=== PATIENT | male | born 1990 | race African-American/Black ===

== ENCOUNTER → 2016-06-04 | Emergency (ER) | payer OTHER ==
[~2016-06-04] VITALS: Ht 180.3 cm; Wt 106.6 kg
[~2016-06-04] MED LIST: METOCLOPRAMIDE 10 MG TAB PO ONE; REGL10TA6 PO
[2016-06-04 19:14] VITALS: BP 166/87
[2016-06-04 21:45] LABS: MEAN CORPUSCULAR HEMOGLOBIN 24.6 pg (27.0-33.0); MEAN CORPUSCULAR HGB CONC 32.2 g/dl (32.0-36.5); MEAN CORPUSCULAR VOLUME 76.6 fl (80.0-96.0); RED CELL DISTRIBUTION WIDTH 14.7 % (11.5-14.5); WHITE BLOOD COUNT 8.2 K/mm3 (4.0-10.0)
[2016-06-04 22:07] LABS: METHADONE URINE NEGATIVE (NEGATIVE)
[2016-06-04 22:09] LABS: ALBUMIN 4.3 GM/DL (3.2-5.2); ALBUMIN/GLOBULIN RATIO 1.48 (1.00-1.93); ALKALINE PHOSPHATASE 84 U/L (45-117); ALT/SGPT 23 U/L (12-78); ANION GAP 5 MEQ/L (8-16); AST/SGOT 18 U/L (15-37); BILIRUBIN,DIRECT < 0.1 MG/DL (0.0-0.2); BILIRUBIN,TOTAL 0.4 MG/DL (0.2-1.0); BLOOD UREA NITROGEN 17 MG/DL (7-18); CALCIUM LEVEL 8.6 MG/DL (8.5-10.1); CARBON DIOXIDE LEVEL 31 MEQ/L (21-32); CHLORIDE LEVEL 107 MEQ/L (98-107); CREATININE FOR GFR 1.21 MG/DL (0.70-1.30); GLOMERULAR FILTRATION RATE > 60.0 (>60); GLUCOSE, FASTING 78 MG/DL (70-105); POTASSIUM SERUM 4.2 MEQ/L (3.5-5.1); SODIUM LEVEL 143 MEQ/L (136-145); TOTAL PROTEIN 7.2 GM/DL (6.4-8.2)
--- NOTE | 2016-06-04 23:00 | REPUSA ---
CLINICAL HISTORY: Headaches. TECHNIQUE: Multiple axial brain CT scan sections were obtained from base to vertex without contrast a dministration. COMMENTS: The study shows normal configuration of sella turcica. There are no intra or extra-axial collections. There is no mass effect or midline shift. There is no evidence of hematoma formation. No hydrocephal us is present. No abnormal calcifications are noted. No significant abnormalities are seen either in the posterior fossa or supratentorial compartment. The sinuses and mastoid air cells are patent. IMPRESSION: No evidence of acute intracranial pathology. Thank you for your kind referral of this patient.
== END | disposition home or self-care (01) ==
LOC: M ED 20:05
DX: R51 Headache (principal); F17.210 Nicotine dependence, cigarettes, uncomplicated
CPT/HCPCS: 36415; 70450; 80048; 80076; 80306; 85027; 99281; G0480

== ENCOUNTER 2016-09-18 07:20 | Emergency (ER) | payer OTHER ==
[~2016-09-18] VITALS: Ht 182.9 cm; Wt 110.0 kg
[~2016-09-18 07:20] MED LIST changes: -METOCLOPRAMIDE 10 MG TAB PO ONE
[2016-09-18] MEDS ORDERED: ACETAMINOPHEN 325 MG TAB PO ONE (08:30)
[2016-09-18 08:33] LABS: BASO % 0.6 % (0.0-1.0); EOS # 0.6 K/mm3 (0.0-0.50); EOS % 6.5 % (0.0-3.0); LARGE UNSTAINED CELL # 0.2 K/mm3 (0.0-0.4); LARGE UNSTAINED CELL % 1.8 % (0.0-4.0); LYMPH # 2.5 K/mm3 (1.5-6.5); LYMPH % 29.1 % (24.0-44.0); MEAN CORPUSCULAR HEMOGLOBIN 24.4 pg (27.0-33.0); MEAN CORPUSCULAR HGB CONC 31.8 g/dl (32.0-36.5); MEAN CORPUSCULAR VOLUME 76.6 fl (80.0-96.0); MONO # 0.6 K/mm3 (0.0-0.8); MONO % 6.9 % (0.0-5.0); NEUTROPHILS # 4.7 K/mm3 (1.8-7.7); PLATELET COUNT, AUTOMATED 163 k/mm3 (150-450); RED CELL DISTRIBUTION WIDTH 14.9 % (11.5-14.5); WHITE BLOOD COUNT 8.6 K/mm3 (4.0-10.0)
[2016-09-18 08:51] LABS: CONTROL LINE MONO INT CTR LINE PRESENT
[2016-09-18 09:14] VITALS: BP 130/70
[2016-09-20] MEDS ORDERED: PENI500T PO (21:50)
[2016-09-21 00:15] LABS: MUMPS VIRUS IgM ANTIBODY <0.80 AU (0.00-0.79)
== END 2016-09-18 09:15 | disposition home or self-care (01) ==
LOC: M ED 07:20
DX: B26.9 Mumps without complication (principal)

== ENCOUNTER 2018-04-16 19:51 | Emergency (ER) | payer OTHER, SELFPAY ==
[~2018-04-16] VITALS: Ht 182.9 cm; Wt 115.9 kg
[~2018-04-16 19:51] MED LIST changes: +PENI500T PO
[2018-04-16] MEDS ORDERED: CEPHALEXIN 500 MG CAP PO ONE (20:30)
[2018-04-16] MEDS ORDERED: IBUPROFEN 600 MG TAB PO ONE (20:30)
[2018-04-16] MEDS ORDERED: KEFL500C17 PO (20:32)
[2018-04-16 20:50] VITALS: BP 122/67
--- NOTE | 2018-04-17 07:36 | REP ---
Clinical: Pain and swelling Technique: AP, lateral, bilateral oblique views right second digit . Findings: The osseous structures and joint spaces are intact and normal. There is no evidence for acute fracture or dislocation. Surrounding soft tissues are unremarkable. No subcutaneous emphysema or radiodense foreign body. Impression: Normal right second digit by radiographic evaluation. No acute fracture or dislocation. Electronically Signed by iVc Quinn MD 04/17/2018 07:28 A
== END 2018-04-16 20:51 | disposition home or self-care (01) ==
LOC: M ED 19:51
DX: L03.011 Cellulitis of right finger (principal); I49.9 Cardiac arrhythmia, unspecified

== ENCOUNTER 2018-04-26 17:46 | Emergency (ER) | payer OTHER ==
[~2018-04-26] VITALS: Ht 182.9 cm; Wt 111.4 kg
[~2018-04-26 17:46] MED LIST changes: +KEFL500C17 PO
[2018-04-26 17:48] VITALS: BP 140/62
== END 2018-04-26 18:54 | disposition left against medical advice (07) ==
LOC: M ED 17:46
DX: S05.90XA Unspecified injury of unspecified eye and orbit, initial encounter (principal); Z53.21 Procedure and treatment not carried out due to patient leaving prior to being seen by health care provider

== ENCOUNTER → 2018-06-26 | Outpatient (REF) | payer OTHER, MEDICAID ==
[2018-06-26 13:21] LABS: BASO % 0.6 % (0.0-1.0); EOS # 0.6 10^3/uL (0.0-0.50); HEMATOCRIT 41.1 % (42.0-52.0); HEMOGLOBIN 13.2 g/dl (13.5-17.5); LYMPH # 1.9 10^3/uL (1.5-6.5); LYMPH % 29.3 % (24.0-44.0); MEAN CORPUSCULAR HEMOGLOBIN 23.6 pg (27.0-33.0); MEAN CORPUSCULAR HGB CONC 32.1 g/dl (32.0-36.5); MEAN CORPUSCULAR VOLUME 73.4 fl (80.0-96.0); MONO # 0.7 10^3/uL (0.0-0.8); MONO % 11.1 % (0.0-5.0); NEUTROPHILS # 3.2 10^3/uL (1.8-7.7); NEUTROPHILS % 49.1 % (36.0-66.0); PLATELET COUNT, AUTOMATED 206 10^3/uL (150-450); WHITE BLOOD COUNT 6.4 10^3/uL (4.0-10.0)
[2018-06-26 13:34] LABS: ALBUMIN 3.8 GM/DL (3.2-5.2); ALT/SGPT 25 U/L (12-78); BILIRUBIN,TOTAL 0.5 MG/DL (0.2-1.0); BLOOD UREA NITROGEN 16 MG/DL (7-18); CALCIUM LEVEL 8.2 MG/DL (8.5-10.1); CARBON DIOXIDE LEVEL 25 MEQ/L (21-32); CHLORIDE LEVEL 110 MEQ/L (98-107); CHOLESTEROL LEVEL 134 MG/DL (<200); CHOLESTEROL RISK RATIO 2.436 (<5); CREATININE FOR GFR 0.78 MG/DL (0.70-1.30); GLOMERULAR FILTRATION RATE > 60.0 (>60); GLUCOSE, FASTING 98 MG/DL (70-100); HDL CHOLESTEROL 55 MG/DL (>40); LDL CHOLESTEROL 72 MG/DL (<100); NON-HDL-C 79 MG/DL; SODIUM LEVEL 139 MEQ/L (136-145); TOTAL PROTEIN 6.7 GM/DL (6.4-8.2); TRIGLYCERIDES LEVEL 37 MG/DL (<150)
[2018-06-26 13:49] LABS: HEMOGLOBIN A1c 5.5 %
== END ==
LOC: M LAB REF 12:46
PROVIDERS: ATTEND Nurse Practitioner Family
DX: Z13.9 Encounter for screening, unspecified (principal)

== ENCOUNTER → 2018-11-06 | Outpatient (REF) | payer OTHER ==
[~2018-11-06] MED LIST changes: +PREPCRE TOP
[2018-11-06 23:13] LABS: CHLAMYDIA DNA AMPLIFICATION NEGATIVE (NEGATIVE); GC DNA AMPLIFICATION NEGATIVE (NEGATIVE)
== END ==
LOC: M LAB REF 10:14
PROVIDERS: ATTEND Physician Assistant
DX: R30.0 Dysuria (principal); B00.9 Herpesviral infection, unspecified

== ENCOUNTER 2019-01-14 10:49 | Emergency (ER) | payer OTHER ==
[~2019-01-14] VITALS: Ht 182.9 cm; Wt 96.8 kg
[~2019-01-14 10:49] MED LIST changes: -PREPCRE TOP
[2019-01-14] MEDS ORDERED: LIDOCAINE 1% MDV 20ML VIAL SC ONE (11:30)
[2019-01-14] MEDS ORDERED: KEFL500C17 PO (12:33)
[2019-01-14 12:49] VITALS: BP 128/70
== END 2019-01-14 13:05 | disposition home or self-care (01) ==
LOC: M ED 10:49
DX: S81.011A Laceration without foreign body, right knee, initial encounter (principal); W25.XXXA Contact with sharp glass, initial encounter; Y92.89 Other specified places as the place of occurrence of the external cause; Y99.0 Civilian activity done for income or pay; F17.210 Nicotine dependence, cigarettes, uncomplicated

== ENCOUNTER 2019-03-17 12:56 | Emergency (ER) | payer OTHER, SELFPAY ==
[~2019-03-17] VITALS: Ht 182.9 cm; Wt 95.1 kg
[2019-03-17 12:58] VITALS: BP 143/77
[2019-03-17] MEDS ORDERED: PREPCRE TOP (15:32)
== END 2019-03-17 15:41 | disposition home or self-care (01) ==
LOC: M ED 12:56
DX: K64.4 Residual hemorrhoidal skin tags (principal); F17.210 Nicotine dependence, cigarettes, uncomplicated; Z91.018 Allergy to other foods

== ENCOUNTER 2021-10-04 18:44 | Emergency (ER) | payer OTHER, SELFPAY ==
[~2021-10-04] VITALS: Ht 182.9 cm; Wt 100.0 kg
[2021-10-04 18:44] VITALS: BP 146/84
[~2021-10-04 18:44] MED LIST changes: +PHEN26CR TOP
[2021-10-04] MEDS ORDERED: BENA25CA4 PO (18:55)
== END 2021-10-05 00:23 | disposition left against medical advice (07) ==
LOC: M ED 18:44
DX: Z53.21 Procedure and treatment not carried out due to patient leaving prior to being seen by health care provider (principal)

== ENCOUNTER → 2021-10-25 | Outpatient (CLI) | payer OTHER ==
[~2021-10-25] MED LIST changes: +BENA25CA4 PO
== END ==
LOC: M EKG 11:14
PROVIDERS: ATTEND Orthopaedic Surgery
DX: Z01.810 Encounter for preprocedural cardiovascular examination (principal)

== ENCOUNTER → 2021-10-30 | Outpatient (CLI) | payer OTHER | LOC: M LABSMTC 09:24 | PROVIDERS: ATTEND Nurse Practitioner Family | DX: Z11.52 Encounter for screening for COVID-19 (principal) ==

== ENCOUNTER → 2022-04-20 | Outpatient (REF) | payer OTHER ==
[2022-04-20 23:37] LABS: GC DNA AMPLIFICATION NEGATIVE (NEGATIVE)
== END ==
LOC: M LAB REF 21:42
PROVIDERS: ATTEND Physician Assistant
DX: Z20.2 Contact with and (suspected) exposure to infections with a predominantly sexual mode of transmission (principal)

== ENCOUNTER → 2022-07-02 | Outpatient (REF) | payer OTHER ==
[2022-07-02 17:57] LABS: BASO % 0.3 % (0.0-1.0); EOS # 0.5 10^3/uL (0.0-0.5); EOS % 3.3 % (0.0-3.0); HEMATOCRIT 43.9 % (42.0-52.0); HEMOGLOBIN 13.6 g/dl (13.5-17.5); LYMPH # 1.6 10^3/uL (1.5-5.0); LYMPH % 9.9 % (24.0-44.0); MEAN CORPUSCULAR HEMOGLOBIN 23.5 pg (27.0-33.0); MONO # 1.5 10^3/uL (0.0-0.8); MONO % 9.2 % (2.0-8.0); NEUTROPHILS # 12.1 10^3/uL (1.5-8.5); NEUTROPHILS % 76.6 % (36.0-66.0); PLATELET COUNT, AUTOMATED 220 10^3/uL (150-450); RED BLOOD COUNT 5.78 10^6/uL (4.30-6.10); WHITE BLOOD COUNT 15.8 10^3/uL (4.0-10.0)
[2022-07-02 18:02] LABS: HEMOGLOBIN A1c 5.3 % (4.0-6.0)
[2022-07-02 18:12] LABS: ALBUMIN 3.8 G/DL (3.2-5.2); ALKALINE PHOSPHATASE 91 U/L (46-116); ALT/SGPT 26 U/L (7.0-40); AST/SGOT 24 U/L (<34); BILIRUBIN,TOTAL 0.7 MG/DL (0.3-1.2); BLOOD UREA NITROGEN 14 MG/DL (9-23); CALCIUM LEVEL 8.4 MG/DL (8.5-10.1); CARBON DIOXIDE LEVEL 28 MMOL/L (20-31); CHLORIDE LEVEL 105 MMOL/L (98-107); CHOLESTEROL LEVEL 140 MG/DL (<200); CHOLESTEROL RISK RATIO 2.54 (<5); CREATININE FOR GFR 1.05 MG/DL (0.70-1.30); GLOMERULAR FILTRATION RATE > 60.0 (>60); GLUCOSE, FASTING 83 MG/DL (60-100); HDL CHOLESTEROL 55.1 MG/DL (>40); LDL CHOLESTEROL 74.9 MG/DL (<100); NON-HDL-C 84.9 MG/DL; POTASSIUM SERUM 4.7 MMOL/L (3.5-5.1); SODIUM LEVEL 139 MMOL/L (136-145); TOTAL PROTEIN 6.7 G/DL (5.7-8.2); TRIGLYCERIDES LEVEL 50 MG/DL (<150)
[2022-07-02 18:13] LABS: THYROID STIMULATING HORMONE 1.443 uIU/ML (0.55-4.78); TOTAL 25(OH) VITAMIN D 13.2 NG/ML (20.0-100.0)
== END ==
LOC: M LAB REF 16:27
PROVIDERS: ATTEND Nurse Practitioner Family
DX: E66.3 Overweight (principal); E55.9 Vitamin D deficiency, unspecified; R53.83 Other fatigue

== ENCOUNTER 2025-01-17 07:49 | Emergency (ER) | payer OTHER ==
[~2025-01-17] VITALS: Ht 182.9 cm; Wt 106.8 kg
[2025-01-17 10:03] VITALS: BP 131/70; TEMP 98; O2SAT 98
== END 2025-01-17 10:06 | disposition home or self-care (01) ==
LOC: M ED 07:49
DX: S63.91XA Sprain of unspecified part of right wrist and hand, initial encounter (principal); S60.221A Contusion of right hand, initial encounter; W22.8XXA Striking against or struck by other objects, initial encounter; M79.641 Pain in right hand; F17.200 Nicotine dependence, unspecified, uncomplicated; F10.10 Alcohol abuse, uncomplicated; F12.10 Cannabis abuse, uncomplicated; Z91.018 Allergy to other foods; Y92.89 Other specified places as the place of occurrence of the external cause; Y93.89 Activity, other specified; Y99.0 Civilian activity done for income or pay